=== PATIENT | male | born 1985 | race Caucasian/White ===

== ENCOUNTER 2020-06-12 12:35 | Emergency (ER) | payer SELFPAY ==
[~2020-06-12] VITALS: Ht 188 cm; Wt 93.2 kg
[2020-06-12 12:38] VITALS: BP 120/80
--- NOTE | 2020-06-12 13:10 | NUR ---
This RN to bedside for eval, question pt "what brings you to the ER today?" Pt points to right jaw. This RN questions further about if it's painful and onset of complaint. Pt's answers are non-descript, "yeah, it hurts, I don't know, recently." This RN educates pt that recently is relative, does he mean week, month year? Pt states month. This RN questions what else is going on pt states "CP." This RN questions when that complaint started, pt states "recently." This RN inquired further and pt states "month." This RN confirms with pt that both his tooth and his chest began hurting 1 month ago, "and what changed to bring you in today?" Pt does not answer, he shrugs his shoulders. This RN questions if pt is sober, or if something else is going on. Pt states "Yeah [he's sober], I just came from the gym, I felt like I was going to pass out." This RN inquired about medical hx. Pt states "am I in the right place? Do you want me to fix this myself." Pt educated that he needs to give more information inorder for the medical team to be able to help him with his complaints. Pt educated that a ERP will come to assess him and we will await orders. Pt agreed to POC. Connected to all monitors,
--- NOTE | 2020-06-12 13:41 | NUR ---
Pt requested string to play with to keep his hands busy. Provided for pt.
--- NOTE | 2020-06-12 14:26 | NUR ---
Upon d/c, pt states "well I probably have COVID, hopefully that's it." Denied want COVID swab. Offered pt dental referal list, pt states "will that help?" and denied resources. Pt states "well hopefully nobody else gets hurt." This RN asked pt if he was having thoughts of hurting himself or others, pt denied.
== END 2020-06-12 14:30 | disposition home or self-care (01) ==
LOC: ED 14:23
DX: K08.89 Other specified disorders of teeth and supporting structures (principal); R68.84 Jaw pain; R07.89 Other chest pain
CPT/HCPCS: 93005; 99283